=== PATIENT | female | born 1945 | race Two or more races ===

== ENCOUNTER 2020-11-07 12:18 | Emergency (ER) | payer MEDICARE, OTHER ==
[~2020-11-07] VITALS: Ht 162.6 cm; Wt 72.6 kg
[2020-11-07 13:49] VITALS: BP 133/77
== END 2020-11-07 14:39 | disposition home or self-care (01) ==
LOC: ER 12:18
DX: T16.1XXA Foreign body in right ear, initial encounter (principal); E11.9 Type 2 diabetes mellitus without complications; I10 Essential (primary) hypertension; X58.XXXA Exposure to other specified factors, initial encounter; Y93.89 Activity, other specified; Y92.89 Other specified places as the place of occurrence of the external cause; Y99.8 Other external cause status